=== PATIENT | female | born 1980 | race Two or more races ===

== ENCOUNTER 2025-03-05 09:50 | Day surgery (SDC) | payer MEDICAID, SELFPAY ==
--- NOTE | 2025-03-02 06:20 | EKG_ITS ---
[facility] Test Date: 2025-03-02 Pat Name: KT ORTIZ Department: Room: - Gender: Female Campaign Management Senior Manager: SOURAV : 1980 Requested By: Alfredo Blackman Order Number: [id number] Reading MD: Alfredo Blackman Measurements Intervals [place] Rate: 80 P: 67 CT: 140 QRS: 31 QRSD: 73 T: 25 QT: 368 QTc: 426 Interpretive Statements SINUS RHYTHM No previous ECG available for comparison /store/S0/[id number].pdf
[2025-03-02 10:52] VITALS: BMI 30.1
[2025-03-02 11:11] LABS: Collection Type, Urine Clean Catch
[2025-03-02 11:53] LABS: Basophils % (Auto) 1 % (0-2.5); Eosinophils # (Auto) 0.2 Thou/mm3 (0.0-0.5); Eosinophils % (Auto) 3 % (0-10); Hematocrit 33.6 % (36.0-46.0); Hemoglobin 9.7 g/dL (12.0-16.0); Immature Granulocytes % (Auto) 0 % (0-0); Immature Granulocytes Auto 0.01 Thou/mm3 (0.00-0.00); Lymphocytes # (Auto) 1.7 Thou/mm3 (1.0-4.8); Lymphocytes % (Auto) 28 % (10-50); Mean Corpuscular HGB Conc 28.9 g/dl (31.0-37.0); Mean Corpuscular Hemoglobin 19.6 pg (25.0-35.0); Mean Corpuscular Volume 68 fL (80-100); Monocytes # (Auto) 0.4 Thou/mm3 (0.0-0.8); Monocytes % (Auto) 7 % (0-12); Neutrophils # (Auto) 3.8 Thou/mm3 (1.8-7.7); Neutrophils % (Auto) 62 % (37-80); Nucleated Red Blood Cell % 0 /100 WBC (0); Platelet Count 386 Thou/mm3 (140-440); Red Blood Count 4.95 Miln/mm3 (4.00-5.20); White Blood Count 6.1 Thou/mm3 (3.6-11.0)
[2025-03-02 11:57] LABS: HCG Qualitative,Urine Negative
[2025-03-02 12:02] LABS: Partial Thromboplastin Time 24.3 Seconds (22.0-36.0); Prothrombin Time 10.8 Seconds (9.0-12.2)
[2025-03-02 12:03] LABS: Alanine Aminotransferase 15 U/L (10-49); Albumin, Serum 4.7 gm/dL (3.5-5.0); Albumin/Globulin Ratio 1.7 (1.2-2.2); Alkaline Phosphatase 97 U/L (46-116); Anion Gap 6 (7-16); Aspartate Amino Transferase 17 U/L (0-34); BUN/Creatinine Ratio 13 Ratio (12-20); Bilirubin,Total 0.4 mg/dL (0.3-1.2); Blood Urea Nitrogen 9 mg/dL (9-23); Calcium 9.9 mg/dL (8.3-10.6); Calcium (Corrected) 9.9 mg/dL (8.5-10.1); Chloride 106 mMol/L (98-107); Creatinine (Component) 0.7 mg/dL (0.6-1.3); Globulin 2.8 gm/dL (2.3-3.5); Glucose 158 mg/dL (74-106); Osmolality,Calculated 275 (275-295); Potassium 4.2 mMol/L (3.4-5.1); Sodium 137 mMol/L (136-145); Total Protein 7.5 gm/dL (5.7-8.2); eGFR > 60 See Note
[2025-03-02 12:10] LABS: Bacteria,Urine 1+; Bilirubin,Urine Negative (Negative); Blood,Urine Negative (Negative); Color,Urine Yellow (Lt Yel-Yel); Glucose, Urine Trace (Negative); Hyaline Casts,Urine < 1 /hpf (0-1); Ketones,Urine Trace (Negative); Leukocyte Esterase,Urine Positive (Negative); Nitrite,Urine Negative (Negative); PH,Urine 5.5 (5.0-7.0); Protein,Urine Trace (Neg - Trace); RBC,Urine 5 /hpf (0-3); Specific Gravity,Urine 1.023 (1.001-1.035); Squamous Epithelial Cell,Urine 15 /hpf (0-5); Urobilinogen,Urine Negative mg/dL (0.0-1.0); WBC,Urine 8 /hpf (0-5)
[2025-03-02 12:16] LABS: Clarity,Urine Hazy (Clear/Hazy)
[2025-03-02 15:25] LABS: Path Review Blood Smear Sent to Pathologist
[2025-03-05 10:13] VITALS: BP 126/77; PULSE 79; RESP 14; TEMP 36.8; O2SAT 100; BMI 31.6
[2025-03-05] MEDS: RINGERS LACTATED 1000 ML 1,000 ML 60 ML IV (10:27)
[2025-03-05 14:30] VITALS: BP 122/78; PULSE 100; RESP 18; TEMP 36.8; O2SAT 99
--- NOTE | 2025-03-05 14:30 | SUR.PHASEII ---
pt received from OR in recovery bay 1. pt awake and alert, breathing unlabored on room air. v/s stable. pt dressing to right ear cdi. report received from Guillermo THOMAS and Natan PATTERSON.
[2025-03-05 14:35] VITALS: BP 108/72; PULSE 95; RESP 16; TEMP 36.7; O2SAT 98
[2025-03-05 14:40] VITALS: BP 118/69; PULSE 98; RESP 20; TEMP 36.7; O2SAT 97
--- NOTE | 2025-03-05 14:40 | PD.SUROPNT ---
Date of Procedure 03/05/25 Pre Op Diagnosis Mass in the right parotid gland in the preauricular region. Post Op Diagnosis Same. Procedure Excision of a mass from the right parotid gland in the pre auricular area on 03/05/2025 Findings This patient has a hard mass in the preauricular area turned out to be within the parotid fascia and likely coming from the right parotid gland. This was hyperpigmented and hard. The nerves were not exposed. It was relatively superficial. Procedure Description The patient is examined in the preop area risk benefits and alternatives were discussed with the patient and informed consent is obtained. There is a small risk of facial nerve injury. The the patient side and site is marked and then patient is transferred to the operative room. MAC anesthetic is given to the patient by the anesthesiologist and then the face is prepped and draped in usual manner. After that local anesthetic is injected with 1% lidocaine with epinephrine.. After that the vertical incision is made within the hairline and dissection is carried out in the skin and subcutaneous tissue. A plane is developed between the subcutaneous tissue and the parotid gland parotid fascia is incised and the mass is identified and is excised completely. Hemostasis is achieved. The parotid fascia is approximated by 3-0 Vicryl stitch and then subcutaneous tissues approximated by 3-0 Vicryl and skin by 4-0 nylon stitches. Estimated loss of blood but less than 3 cc patient taught the procedure very well. Complications none. Sterile dressing is applied. Anesthesia MAC Drains None. Pathology / specimen Other (Right parotid mass in the preauricular area.) Estimated Blood Loss 5 Condition Stable Disposition PACU Surgeon Alfredo Blackman MD Surgical Staff Operation Date: 03/05/25 12:15 <No data on this case meets the specified criteria> Anesthesia by Natan Diallo registered vascular technologist (rvt) with a surgical technology student Guillermo Chavarria RN embosser apprentice Nava THOMAS embosser apprentice
[2025-03-05 14:45] VITALS: BP 118/68; PULSE 92; RESP 20; TEMP 36.6; O2SAT 97
[2025-03-05 15:00] VITALS: BP 116/73; PULSE 95; RESP 14; TEMP 36.6; O2SAT 97
--- NOTE | 2025-03-05 15:15 | SUR.PHASEII ---
pt awake and alert, breathing unlabored on room air. v/s stable. pt dressing to right ear cdi. pt able to ambulate to wheelchair with steady gait. d/c instructions given with brother Renny in room, all questions answered. pt d/c via wheelchair with all belongings.
== END 2025-03-05 15:15 | disposition home or self-care (01) ==
PROVIDERS: Anesthesiology; PCP Family Medicine; Referring Provider Specialist; Visit Provider Specialist
PROC: (CPT 42410; principal; 2025-03-05 12:00)
DX: K11.8 Other diseases of salivary glands (principal); M86.68 Other chronic osteomyelitis, other site; E11.9 Type 2 diabetes mellitus without complications
CPT/HCPCS: 42410; 36415; 80053; 81001; 81025; 85025; 85610; 85730; 93005; A4217; A4649; J2250; J2704; J3010; J3490; J7120; J0665

== ENCOUNTER 2025-04-23 12:50 | Day surgery (SDC) | payer MEDICAID, SELFPAY ==
[2025-04-20 10:13] VITALS: BMI 30.2
[2025-04-20 10:37] LABS: Collection Type, Urine Clean Catch
[2025-04-20 11:00] LABS: Basophils # (Auto) 0.1 Thou/mm3 (0.0-0.2); Basophils % (Auto) 1 % (0-2.5); Eosinophils # (Auto) 0.2 Thou/mm3 (0.0-0.5); Eosinophils % (Auto) 3 % (0-10); Hematocrit 30.5 % (36.0-46.0); Hemoglobin 8.9 g/dL (12.0-16.0); Immature Granulocytes % (Auto) 0 % (0-0); Immature Granulocytes Auto 0.02 Thou/mm3 (0.00-0.00); Lymphocytes # (Auto) 1.7 Thou/mm3 (1.0-4.8); Lymphocytes % (Auto) 28 % (10-50); Mean Corpuscular HGB Conc 29.2 g/dl (31.0-37.0); Mean Corpuscular Hemoglobin 19.6 pg (25.0-35.0); Mean Corpuscular Volume 67 fL (80-100); Monocytes # (Auto) 0.5 Thou/mm3 (0.0-0.8); Monocytes % (Auto) 8 % (0-12); Neutrophils # (Auto) 3.7 Thou/mm3 (1.8-7.7); Neutrophils % (Auto) 61 % (37-80); Nucleated Red Blood Cell % 0 /100 WBC (0); Platelet Count 475 Thou/mm3 (140-440); Red Blood Count 4.53 Miln/mm3 (4.00-5.20); White Blood Count 6.1 Thou/mm3 (3.6-11.0)
[2025-04-20 11:07] LABS: Bacteria,Urine Rare; Bilirubin,Urine Negative (Negative); Blood,Urine Negative (Negative); Budding Yeast,Urine Present; Color,Urine Lt-Yellow (Lt Yel-Yel); Glucose, Urine 1+ (Negative); Ketones,Urine Negative (Negative); Leukocyte Esterase,Urine Positive (Negative); Nitrite,Urine Negative (Negative); Protein,Urine Negative (Neg - Trace); RBC,Urine 40 /hpf (0-3); Specific Gravity,Urine 1.024 (1.001-1.035); Squamous Epithelial Cell,Urine 17 /hpf (0-5); Urobilinogen,Urine Negative mg/dL (0.0-1.0); WBC,Urine 6 /hpf (0-5)
[2025-04-20 11:10] LABS: Alanine Aminotransferase 22 U/L (10-49); Albumin, Serum 4.6 gm/dL (3.5-5.0); Albumin/Globulin Ratio 1.8 (1.2-2.2); Alkaline Phosphatase 99 U/L (46-116); Anion Gap 9 (7-16); Aspartate Amino Transferase 19 U/L (0-34); BUN/Creatinine Ratio 18 Ratio (12-20); Bilirubin,Total 0.4 mg/dL (0.3-1.2); Blood Urea Nitrogen 11 mg/dL (9-23); Calcium 9.9 mg/dL (8.3-10.6); Calcium (Corrected) 9.9 mg/dL (8.5-10.1); Carbon Dioxide 26.1 mMol/L (20.0-31.0); Chloride 98 mMol/L (98-107); Creatinine (Component) 0.6 mg/dL (0.6-1.3); Globulin 2.5 gm/dL (2.3-3.5); Glucose 188 mg/dL (74-106); Osmolality,Calculated 270 (275-295); Partial Thromboplastin Time 25.1 Seconds (22.0-36.0); Potassium 4.1 mMol/L (3.4-5.1); Sodium 133 mMol/L (136-145); Total Protein 7.1 gm/dL (5.7-8.2); eGFR > 60 See Note
[2025-04-20 11:12] LABS: Clarity,Urine Hazy (Clear/Hazy)
[2025-04-20 11:14] LABS: HCG Qualitative,Urine Negative
[2025-04-23] VITALS (8 sets, daily range): BP systolic 109–137; BP diastolic 68–94; PULSE 93–110; RESP 14–20; TEMP 36.8–37; O2SAT 95–100; BMI 29.8
--- NOTE | 2025-04-23 17:00 | SUR.PHASEI ---
pt awake, alert, able to follow commands, breathing unlabored, dressing to chest clean, dry, and intact, report from Koko THOMAS, Hank RODAS, and Porsche PATTERSON
--- NOTE | 2025-04-23 17:09 | ESOP_ITS ---
Date of Procedure 04/23/25 Pre Op Diagnosis Inflamed epidermal cyst to the right chest wall Post Op Diagnosis Same. Procedure Excision of 5 cm inflamed epidermal cyst right chest wall in the subclavicular area on 04/23/2025 Findings This patient has a large inflamed painful epidermal cyst in the right subclavian region. There is a chronic scar tissue around the cyst. Related to be removed with a ellipse of the skin. Procedure Description This patient was interviewed in the preoperative area. Risk benefits and alternatives were discussed with the patient. Site and site are marked. Patient is taken to the operating room and general anesthesia is administered after patient is placed in supine position on the operating room table. Neck shoulder chest wall breast regions were prepped and draped in usual manner. Local anesthesia 1% lidocaine with epinephrine is infiltrated. Curvilinear elliptical transverse incision is made around the mass and deepened through the layers of skin and subcutaneous tissue. Hemostasis is achieved with the masses dissected away from the subcutaneous tissue and is extending all the way up to pectoralis fascia. All this is removed. Excision cavity is thoroughly irrigated with saline solution hemostasis is achieved. Subtenons tissues approximated by 3-0 Vicryl and skin by 3-0 nylon interrupted sutures. Sterile dressing is applied. Patient tolerated procedure very well. Complications none. Anesthesia GETA Drains None. Implants None. Pathology / specimen Other (Epidermal cyst to the right chest wall subclavicular region.) Estimated Blood Loss 5 Condition Stable Disposition PACU Surgeon Alfredo Blackman MD Surgical Staff Operation Date: 04/23/25 16:15 Case Staff SALES ORDER COORDINATOR: Porsche Charles RN First Assistant: Yissel Lucero RN director athletic Christian[employer] angiography technologist with surgical technology student
--- NOTE | 2025-04-23 17:15 | SUR.PHASEI ---
pt tolerating ice chips without difficulty swallowing or n/v
--- NOTE | 2025-04-23 18:15 | SUR.PHASEII ---
pt awake, alert, able to follow commands, breathing unlabored, dressing to chest clean, dry, and intact, discharge instructions given with brother Nayan present, all questions answered, pt able to dress self and ambulate to wheelchair with steady gait, pt discharged via wheelchair with all belongings and copies of discharge paperwork.
== END 2025-04-23 18:15 | disposition home or self-care (01) ==
LOC: S2EX 19:48
PROVIDERS: Anesthesiology; PCP Family Medicine; Referring Provider Specialist; Visit Provider Specialist
PROC: (CPT 11406; principal; 2025-04-23 16:00)
DX: L72.0 Epidermal cyst (principal)
CPT/HCPCS: 11406; 36415; 80053; 81001; 81025; 85025; 85730; A4217; A4649; J0690; J1100; J2371; J2405; J2704; J3010; J3490